=== PATIENT | female | born 1985 | race Caucasian/White ===

== ENCOUNTER 2023-04-23 11:56 | Emergency (ER) | payer OTHER ==
[2023-04-23] MEDS ORDERED: SODIUM CHLORIDE 0.9% 2,000 ML IV STA (11:58)
[2023-04-23 12:07] VITALS: RESP 18; TEMP 99
[2023-04-23 12:54] LABS: Basophils % (A) 1 %; Eosinophils % (A) 1 %; HCT 40.1 % (34.0-46.0); HGB 13.5 gm/dL (11.4-16.0); Lymphocytes % (A) 42 %; MCH 27.7 pg (25.0-35.0); MCHC 33.6 g/dL (31.0-37.0); MCV 82.5 fL (80.0-100.0); Mean Platelet Volume 9.4; Monocytes # (A) 0.2 k/uL (0-1.0); Monocytes % (A) 5 %; Neutrophils # (A) 2.5 k/uL (1.3-7.7); Neutrophils % (A) 50 %; Platelet Count 203 k/uL (150-450); RBC 4.86 m/uL (3.80-5.40); RDW 14.6 % (11.5-15.5); WBC 4.9 k/uL (3.8-10.6)
[2023-04-23 13:12] LABS: Glucose 109 mg/dL (74-99)
[2023-04-23 13:13] LABS: ALT 63 U/L (4-34); AST 94 U/L (14-36); African American GFR (CKD) >90 (>60 ml/min/1.73 sqM); Albumin 4.5 g/dL (3.5-5.0); Alkaline Phosphatase 66 U/L (38-126); Anion Gap 18 mmol/L; Blood Urea Nitrogen 11 mg/dL (7-17); Calcium 9.2 mg/dL (8.4-10.2); Carbon Dioxide 16 mmol/L (22-30); Chloride 110 mmol/L (98-107); Lipase 194 U/L (23-300); Magnesium 2.4 mg/dL (1.6-2.3); Non-African American GFR(CKD) >90 (>60 ml/min/1.73 sqM); Potassium 3.5 mmol/L (3.5-5.1); Sodium 144 mmol/L (137-145); Total Bilirubin 0.3 mg/dL (0.2-1.3); Total Protein 7.5 g/dL (6.3-8.2)
[2023-04-23] MEDS ORDERED: FAMOTIDINE 20 MG/2 ML VIAL IV STA (13:52)
[2023-04-23] MEDS ORDERED: KETOROLAC 15 MG/ML 1 ML VIAL IVP STA (13:52)
[2023-04-23] MEDS ORDERED: METOCLOPRAMIDE 5 MG/ML 2 ML VIAL IVP STA (13:52)
[2023-04-23] MEDS ORDERED: diphenhydrAMINE 50 MG/ML 1 ML VIAL IVP STA (13:52)
--- NOTE | 2023-04-23 13:54 | ED ---
Alcohol HPI - General Chief Complaint: Alcohol Stated Complaint: ETOH Time Seen by Provider: 04/23/23 11:58 Source: patient, EMS, RN notes reviewed Mode of arrival: EMS Limitations: no limitations - History of Present Illness Initial Comments: 37-year-old female presents emergency department via EMS from [facility] for evaluation of intoxication. Patient was checking into [facility] for alcohol rehab she states she drank just prior to going. Patient had a breath alcohol of 0.216. She has a history of IV drug use denies any current use. Patient doesn't nausea and vomiting. States that she has diffuse abdominal discomfort denies having associated symptoms MD Complaint: alcohol withdrawal - Related Data Home Medications Medication Instructions Recorded Confirmed Acetaminophen Tab [Tylenol Tab] 1,000 mg PO Q6HR PRN 04/23/23 04/23/23 Buprenorphine HCl/Naloxone HCl 1 film SL BID 04/23/23 04/23/23 [Suboxone 8 mg-2 mg Sl Film] Gabapentin 600 mg PO TID 04/23/23 04/23/23 Ibuprofen [Motrin] 600 mg PO TID PRN 04/23/23 04/23/23 LORazepam [Ativan] 2 mg PO TID PRN 04/23/23 04/23/23 Propranolol [Inderal] 20 mg PO BID PRN 04/23/23 04/23/23 Thiamine [Vitamin B-1] 100 mg PO DAILY 04/23/23 04/23/23 buPROPion HCL [Wellbutrin XL] 150 mg PO DAILY 04/23/23 04/23/23 hydrOXYzine HCL [Atarax] 25 mg PO TID PRN 04/23/23 04/23/23 Allergies Allergy/AdvReac Type Severity Reaction Status Date / Time No Known Allergies Allergy Verified 04/23/23 14:16 Review of Systems ROS Statement: Those systems with pertinent positive or pertinent negative responses have been documented in the HPI. ROS Other: All systems not noted in ROS Statement are negative. Past Medical History Past Medical History: No Reported History History of Any Multi-Drug Resistant Organisms: None Reported Past Surgical History: No Surgical Hx Reported Past Psychological History: Anxiety Smoking Status: Current every day smoker Past Alcohol Use History: Abuse Past Drug Use History: Marijuana General Exam Limitations: no limitations General appearance: alert, in no apparent distress, appears intoxicated Head exam: Present: atraumatic, normocephalic, normal inspection Eye exam: Present: normal appearance, PERRL, EOMI. Absent: scleral icterus, conjunctival injection, periorbital swelling ENT exam: Present: normal exam, mucous membranes moist Neck exam: Present: normal inspection. Absent: tenderness, meningismus, lymphadenopathy Respiratory exam: Present: normal lung sounds bilaterally. Absent: respiratory distress, wheezes, rales, rhonchi, stridor Cardiovascular Exam: Present: normal rhythm, tachycardia, normal heart sounds. Absent: systolic murmur, diastolic murmur, rubs, gallop, clicks GI/Abdominal exam: Present: soft, normal bowel sounds. Absent: distended, tenderness, guarding, rebound, rigid Neurological exam: Present: alert, oriented X3 Course Vital Signs 04/23/23 04/23/23 12:00 15:58 Temperature 99.0 F Pulse Rate 113 H 85 Respiratory 18 18 Rate Blood Pressure 119/88 93/61 O2 Sat by Pulse 97 100 Oximetry Medical Decision Making - Medical Decision Making Was pt. sent in by a medical professional or institution ([facility], [employer], urgent care, hospital, or long-term...) When possible be specific @ -No Did you speak to anyone other than the patient for history (EMS, parent, family, police, friend...)? What history was obtained from this source @ -No Did you review nursing and triage notes (agree or disagree)? Why? @ -I reviewed and agree with nursing and triage notes Were old charts reviewed (outside hosp., previous admission, EMS record, old EKG, old radiological studies, urgent care reports/EKG's, long-term records)? Report findings @ -No old charts were reviewed Differential Diagnosis (chest pain, altered mental status, abdominal pain women, abdominal pain men, vaginal bleeding, weakness, fever, dyspnea, syncope, headache, dizziness, GI bleed, back pain, seizure, CVA, palpatations, mental health, musculoskeletal)? @ -Alcohol intoxication, alcohol withdrawal, nausea vomiting EKG interpreted by me (3pts min.). @ -None X-rays interpreted by me (1pt min.). @ -None done CT interpreted by me (1pt min.). @ -None done U/S interpreted by me (1pt. min.). @ -None done What testing was considered but not performed or refused? (CT, X-rays, U/S, labs)? Why? @ -None What meds were considered but not given or refused? Why? @ -None Did you discuss the management of the patient with other professionals (professionals i.e. , PA, [employer], lab, RT, psych nurse, licensed clinical social worker, manufacturing industrial engineer, teacher, penal officer, case assembler)? Give summary @ -No Was smoking cessation discussed for >3mins.? @ -No Was critical care preformed (if so, how long)? @ -No Were there social determinants of health that impacted care today? How? (Homelessness, low income, unemployed, alcoholism, drug addiction, transportation, low edu. Level, literacy, decrease access to med. care, fpc, rehab)? @ -No Was there de-escalation of care discussed even if they declined (Discuss DNR or withdrawal of care, Hospice)? DNR status @ -No What co-morbidities impacted this encounter? (DM, HTN, Smoking, COPD, CAD, Cancer, CVA, ARF, Chemo, Hep., AIDS, mental health diagnosis, sleep apnea, morbid obesity)? @ -Alcohol abuse Was patient admitted / discharged? Hospital course, mention meds given and route, prescriptions, significant lab abnormalities, going to OR and other pertinent info. @ -Discharged to [facility] patient was well-hydrated, patient did have mild metabolic acidosis. Patient states she does feel improved after antiemetics. Patient's heart rate has improved patient is currently sober will be discharged back. Undiagnosed new problem with uncertain prognosis? @ -No Drug Therapy requiring intensive monitoring for toxicity (Heparin, Nitro, Insulin, Cardizem)? @ -No Were any procedures done? @ -No Diagnosis/symptom? @ -Alcohol abuse, alcohol intoxication, dehydration Acute, or Chronic, or Acute on Chronic? @ -Acute Uncomplicated (without systemic symptoms) or Complicated (systemic symptoms)? @ -uncomplicated Side effects of treatment? @ -No Exacerbation, Progression, or Severe Exacerbation? @ -No Poses a threat to life or bodily function? How? (Chest pain, [place], [place], pneumonia, PE, COPD, DKA, ARF, appy, cholecystitis, CVA, Diverticulitis, Homicidal, Suicidal, threat to staff... and all critical care pts) @ -No - Lab Data Result diagrams: 04/23/23 12:08 04/23/23 12:08 Lab Results 04/23/23 04/23/23 Range/Units 12:08 12:08 WBC 4.9 (3.8-10.6) k/uL RBC 4.86 (3.80-5.40) m/uL Hgb 13.5 (11.4-16.0) gm/dL Hct 40.1 (34.0-46.0) % MCV 82.5 (80.0-100.0) fL MCH 27.7 (25.0-35.0) pg MCHC 33.6 (31.0-37.0) g/dL RDW 14.6 (11.5-15.5) % Plt Count 203 (150-450) k/uL MPV 9.4 Neutrophils % 50 % Lymphocytes % 42 % Monocytes % 5 % Eosinophils % 1 % Basophils % 1 % Neutrophils # 2.5 (1.3-7.7) k/uL Lymphocytes # 2.0 (1.0-4.8) k/uL Monocytes # 0.2 (0-1.0) k/uL Eosinophils # 0.0 (0-0.7) k/uL Basophils # 0.0 (0-0.2) k/uL Sodium 144 (137-145) mmol/L Potassium 3.5 (3.5-5.1) mmol/L Chloride 110 H (98-107) mmol/L Carbon Dioxide 16 L (22-30) mmol/L Anion Gap 18 mmol/L BUN 11 (7-17) mg/dL Creatinine 0.81 (0.52-1.04) mg/dL Est GFR (CKD-EPI)AfAm >90 (>60 ml/min/1.73 sqM) Est GFR (CKD-EPI)NonAf >90 (>60 ml/min/1.73 sqM) Glucose 109 H (74-99) mg/dL Calcium 9.2 (8.4-10.2) mg/dL Magnesium 2.4 H (1.6-2.3) mg/dL Total Bilirubin 0.3 (0.2-1.3) mg/dL AST 94 H (14-36) U/L ALT 63 H (4-34) U/L Alkaline Phosphatase 66 (38-126) U/L Total Protein 7.5 (6.3-8.2) g/dL Albumin 4.5 (3.5-5.0) g/dL Lipase 194 (23-300) U/L Disposition Clinical Impression: Alcoholic intoxication, Alcohol abuse Disposition: HOME SELF-CARE Condition: Stable Instructions (If sedation given, give patient instructions): Alcohol Intoxication (ED) Additional Instructions: Please return to the Emergency Department if symptoms worsen or any other concerns. Is patient prescribed a controlled substance at d/c from ED?: No Referrals: None,Stated [Primary Care Provider] - 1-2 days Time of Disposition: 16:04
[2023-04-23 17:37] VITALS: BP 106/69; PULSE 88
== END 2023-04-23 17:43 | disposition home or self-care (01) ==
LOC: EC 11:56
DX: F10.129 Alcohol abuse with intoxication, unspecified (principal); F12.90 Cannabis use, unspecified, uncomplicated; F17.200 Nicotine dependence, unspecified, uncomplicated; F41.9 Anxiety disorder, unspecified; Z79.899 Other long term (current) drug therapy
CPT/HCPCS: 99284 ×2; 96374 ×2; 96375 ×4; 96361 ×3; 36415; 93005; 80053; 83690; 83735; 85025; J1200; J2765; J3490; J1885

== ENCOUNTER 2023-04-30 21:43 | Observation (INO) | payer OTHER ==
--- NOTE | 2023-05-01 00:51 | ED ---
Seizure HPI - General Chief Complaint: Seizure Stated Complaint: Seizure Time Seen by Provider: 05/01/23 00:33 Source: patient, RN notes reviewed, old records reviewed Mode of arrival: EMS Limitations: no limitations - History of Present Illness Initial Comments: This is a 37-year-old female to the emergency department today. Patient presents today for evaluation regards to seizure. Patient has seizure prior to arrival in the emergency room. This patient second seizure, she takes Wellbutrin to help with smoking, patient also recently going through alcohol withdrawal. Patient is alcohol withdrawal seizure and has not been feeling well MD Complaint: seizure -: minutes(s) Description of Episode: loss of consciousness, tonic-clonic movement -: second(s) Witnessed: yes - by bystander Trauma: Yes Seizure History: none Possible Precipitating Event: none Associated Symptoms: denies other symptoms Treatments Prior to Arrival: none - Related Data Home Medications Medication Instructions Recorded Confirmed Buprenorphine HCl/Naloxone HCl 1 film SL BID 04/23/23 05/01/23 [Suboxone 8 mg-2 mg Sl Film] Acetaminophen Tab [Tylenol] 650 mg PO Q4H PRN 05/01/23 05/01/23 Benzocaine 20 % Gel [Orajel] 1 applic TOPICAL DIRECTED PRN 05/01/23 05/01/23 Chlorpheniramine Maleate 4 mg PO Q4H PRN 05/01/23 05/01/23 [Chlor-Trimeton] Ibuprofen [Motrin Ib] 600 mg PO Q6HR PRN 05/01/23 05/01/23 Mirtazapine [Remeron] 15 mg PO HS 05/01/23 05/01/23 busPIRone HCl [Buspar] 10 mg PO TID 05/01/23 05/01/23 cloNIDine HCL [Catapres] 0.1 - 0.3 mg PO Q4H PRN 05/01/23 05/01/23 lidocaine HCL [lidocaine HCL 1 dose MUCOUS MEM DIRECTED PRN 05/01/23 05/01/23 Viscous] Previous Rx's Medication Instructions Recorded Folic Acid 1 mg PO DAILY #30 tab 05/02/23 Multivitamins, Thera [Multivitamin 1 each PO DAILY #30 tab 05/02/23 (formulary)] Thiamine [Vitamin B-1] 100 mg PO DAILY #30 tab 05/02/23 Allergies Allergy/AdvReac Type Severity Reaction Status Date / Time No Known Allergies Allergy Verified 05/01/23 08:15 Review of Systems ROS Statement: Those systems with pertinent positive or pertinent negative responses have been documented in the HPI. ROS Other: All systems not noted in ROS Statement are negative. Past Medical History Past Medical History: No Reported History History of Any Multi-Drug Resistant Organisms: None Reported Past Surgical History: No Surgical Hx Reported Past Psychological History: Anxiety Smoking Status: Current every day smoker Past Alcohol Use History: Abuse Past Drug Use History: Marijuana General Exam General appearance: alert, in no apparent distress Head exam: Present: atraumatic, normocephalic, normal inspection Eye exam: Present: normal appearance, PERRL, EOMI. Absent: scleral icterus, conjunctival injection, periorbital swelling ENT exam: Present: normal exam, mucous membranes moist Neck exam: Present: normal inspection. Absent: tenderness, meningismus, lymphadenopathy Respiratory exam: Present: normal lung sounds bilaterally. Absent: respiratory distress, wheezes, rales, rhonchi, stridor Cardiovascular Exam: Present: regular rate, normal rhythm, normal heart sounds. Absent: systolic murmur, diastolic murmur, rubs, gallop, clicks GI/Abdominal exam: Present: soft, normal bowel sounds. Absent: distended, tenderness, guarding, rebound, rigid Extremities exam: Present: normal inspection, full ROM, normal capillary refill. Absent: tenderness, pedal edema, joint swelling, calf tenderness Back exam: Present: normal inspection Neurological exam: Present: alert, oriented X3, CN II-XII intact Psychiatric exam: Present: normal affect, normal mood Skin exam: Present: warm, dry, intact, normal color. Absent: rash Course Vital Signs 04/30/23 05/01/23 05/01/23 21:47 06:03 06:18 Temperature 98.8 F Pulse Rate 100 70 59 L Respiratory 18 18 18 Rate Blood Pressure 143/97 107/69 O2 Sat by Pulse 99 100 100 Oximetry 05/01/23 05/01/23 05/01/23 07:00 07:31 08:00 Temperature Pulse Rate 76 64 76 Respiratory 16 18 16 Rate Blood Pressure 107/69 115/74 115/74 O2 Sat by Pulse 97 99 100 Oximetry 05/01/23 05/01/23 05/01/23 09:00 10:00 11:00 Temperature Pulse Rate 72 70 76 Respiratory 18 16 18 Rate Blood Pressure 121/90 119/74 122/92 O2 Sat by Pulse 98 97 96 Oximetry 05/01/23 05/01/23 05/01/23 12:00 13:00 14:00 Temperature Pulse Rate 70 74 72 Respiratory 18 18 18 Rate Blood Pressure 107/62 106/59 121/71 O2 Sat by Pulse 97 97 98 Oximetry 05/01/23 05/01/23 05/01/23 16:34 18:46 20:00 Temperature 98.0 F Pulse Rate 79 76 80 Respiratory 18 18 18 Rate Blood Pressure 129/76 96/68 123/73 O2 Sat by Pulse 98 98 98 Oximetry 05/01/23 05/01/23 21:00 22:00 Temperature Pulse Rate 78 74 Respiratory 18 16 Rate Blood Pressure 102/47 122/79 O2 Sat by Pulse 95 97 Oximetry - Reevaluation(s) Reevaluation #1: 05/01/23 01:46 Record is reviewed Reevaluation #2: 05/01/23 01:46 Recurrent seizure activity here in the ER Reevaluation #3: 05/01/23 01:47 Patient informed results and questions answered Reevaluation #4: 05/01/23 01:46 Was pt. sent in by a medical professional or institution (, [place], [facility], urgent care, hospital, or snf...) When possible be specific @ -no Did you speak to anyone other than the patient for history (EMS, parent, family, police, friend...)? What history was obtained from this source @ -no Did you review nursing and triage notes (agree or disagree)? Why? @ -agree Are old charts reviewed (outside hosp., previous admission, EMS record, old EKG, old radiological studies, urgent care reports/EKG's, snf records)? Report findings @ -yes Differential Diagnosis (chest pain, altered mental status, abdominal pain women, abdominal pain men, vaginal bleeding, weakness, fever, dyspnea, syncope, headache, dizziness, GI bleed, back pain, seizure, CVA, palpatations, mental health, musculoskeletal)? @ -prior EKG interpreted by me (3pts min.). @ -yes X-rays interpreted by me (1pt min.). @ -no CT interpreted by me (1pt min.). @ -no U/S interpreted by me (1pt. min.). @ -no What testing was considered but not performed or refused? (CT, X-rays, U/S, lab s)? Why? @ -none What meds were considered but not given or refused? Why? @ -none Did you discuss the management of the patient with other professionals (professionals i.e. DrMagdaleno, [place], [facility], lab, RT, psych nurse, social professionals, paper twister, teacher, global chief experience officer, case management manager)? Give summary @ -no Was smoking cessation discussed for >3mins.? @ -no Was critical care preformed (if so, how long)? @ -no Were there social determinants of health that impacted care today? How? (Homelessness, low income, unemployed, alcoholism, drug addiction, transportation, low edu. Level, literacy, decrease access to med. care, assisted, rehab)? @ -none Was there de-escalation of care discussed even if they declined (Discuss DNR or withdrawal of care, Hospice)? DNR status @ -no What co-morbidities impacted this encounter? (DM, HTN, Smoking, COPD, CAD, Cancer, CVA, ARF, Chemo, Hep., AIDS, mental health diagnosis, sleep apnea, morbid obesity)? @ -none Was patient admitted / discharged? Hospital course, mention meds given and route, prescriptions, significant lab abnormalities, going to OR and other pertinent info. @ - 37 female to the emergency department for evaluation of seizure seizure activity. Patient is having no recurrent seizure here in the ER, suffer from alcohol withdrawal drug abuse. Patient will be admitted for evaluation treatment, no travel history or sick contacts Admitted Undiagnosed new problem with uncertain prognosis? @ -no Drug Therapy requiring intensive monitoring for toxicity (Heparin, Nitro, Insulin, Cardizem)? @ -no Were any procedures done? @ -no Diagnosis/symptom? @ -Acute seizure, withdrawal symptoms Acute, or Chronic, or Acute on Chronic? @ -Acute Uncomplicated (without systemic symptoms) or Complicated (systemic symptoms)? @ -Complicated Side effects of treatment? @ -no Exacerbation, Progression, or Severe Exacerbation? @ -exacerbation Poses a threat to life or bodily function? How? (Chest pain, [place], [place], pneumonia, PE, COPD, DKA, ARF, appy, cholecystitis, CVA, Diverticulitis, Homicidal, Suicidal, threat to staff... and all critical care pts) @ -yes status epilepticus Reevaluation #5: 05/01/23 01:46 Differential Seizure: Recurrent seizure disorder, febrile seizure, alcohol withdrawal, stimulants, meningitis, encephalitis, intercranial hemorrhage, intracranial tumor, stroke, eclampsia, thyrotoxicosis, hypocalcemia, hyponatremia, hypernatremia, hypomagnesemia, psychogenic, this is not meant to be an all-inclusive list. Medical Decision Making - Medical Decision Making 37 female to the emergency department for evaluation of seizure seizure activity. Patient is having no recurrent seizure here in the ER, suffer from alcohol withdrawal drug abuse. Patient will be admitted for evaluation treatment, no travel history or sick contacts - Lab Data Result diagrams: 05/02/23 05:18 05/02/23 05:18 Lab Results 05/01/23 05/01/23 05/01/23 Range/Units 01:09 01:09 01:09 WBC 5.0 (3.8-10.6) k/uL RBC 4.10 (3.80-5.40) m/uL Hgb 11.7 (11.4-16.0) gm/dL Hct 34.6 (34.0-46.0) % MCV 84.5 (80.0-100.0) fL MCH 28.6 (25.0-35.0) pg MCHC 33.9 (31.0-37.0) g/dL RDW 15.1 (11.5-15.5) % Plt Count 146 L (150-450) k/uL MPV 9.7 Neutrophils % 50 % Lymphocytes % 37 % Monocytes % 6 % Eosinophils % 3 % Basophils % 1 % Neutrophils # 2.5 (1.3-7.7) k/uL Lymphocytes # 1.8 (1.0-4.8) k/uL Monocytes # 0.3 (0-1.0) k/uL Eosinophils # 0.1 (0-0.7) k/uL Basophils # 0.0 (0-0.2) k/uL Sodium 139 (137-145) mmol/L Potassium 4.0 (3.5-5.1) mmol/L Chloride 103 (98-107) mmol/L Carbon Dioxide 25 (22-30) mmol/L Anion Gap 11 mmol/L BUN 13 (7-17) mg/dL Creatinine 0.90 (0.52-1.04) mg/dL Est GFR (CKD-EPI)AfAm >90 (>60 ml/min/1.73 sqM) Est GFR (CKD-EPI)NonAf 83 (>60 ml/min/1.73 sqM) Glucose 91 (74-99) mg/dL Calcium 9.5 (8.4-10.2) mg/dL Magnesium 2.3 (1.6-2.3) mg/dL Total Bilirubin 0.4 (0.2-1.3) mg/dL AST 31 (14-36) U/L ALT 33 (4-34) U/L Alkaline Phosphatase 45 (38-126) U/L Total Protein 7.4 (6.3-8.2) g/dL Albumin 4.7 (3.5-5.0) g/dL Lipase 108 (23-300) U/L Urine Color Yellow Urine Appearance Clear (Clear) Urine pH 5.0 (5.0-8.0) Ur Specific [place] 1.020 (1.001-1.035) Urine Protein Negative (Negative) Urine Glucose (UA) Negative (Negative) Urine Ketones Negative (Negative) Urine Blood Negative (Negative) Urine Nitrite Negative (Negative) Urine Bilirubin Negative (Negative) Urine Urobilinogen <2.0 (<2.0) mg/dL Ur Leukocyte Esterase Negative (Negative) Salicylates <1.0 mg/dL Urine Opiates Screen Not Detected (NotDetected) Ur Oxycodone Screen Not Detected (NotDetected) Urine Methadone Screen Not Detected (NotDetected) Ur Propoxyphene Screen Not Detected (NotDetected) Acetaminophen <10.0 ug/mL Ur Barbiturates Screen Detected H (NotDetected) U Tricyclic Antidepress Not Detected (NotDetected) Ur Phencyclidine Scrn Not Detected (NotDetected) Ur Amphetamines Screen Not Detected (NotDetected) U Methamphetamines Scrn Not Detected (NotDetected) U Benzodiazepines Scrn Detected H (NotDetected) Urine Cocaine Screen Not Detected (NotDetected) U Marijuana (THC) Screen Not Detected (NotDetected) Serum Alcohol <10 mg/dL - EKG Data -: EKG Interpreted by Me (EKG is sinus rhythm 74 VA 130 QRS 78 QTc 408) Disposition Clinical Impression: Alcohol abuse, New onset seizure, Generalized seizure, Alcohol withdrawal Disposition: HOME SELF-CARE Condition: Stable Is patient prescribed a controlled substance at d/c from ED?: No Time of Disposition: 01:25
[2023-05-01] MEDS ORDERED: LORazepam 2 MG/ML INJ IV STA (00:52)
[2023-05-01] MEDS ORDERED: SODIUM CHLORIDE 0.9% 500 ML 500 ML IV STA (00:52)
[2023-05-01] MEDS ORDERED: SODIUM CHLORIDE 0.9% 1,000 ML IV STA ×2 (00:52)
[2023-05-01] MEDS ORDERED: LORazepam 2 MG/ML INJ IV PRN ×2 (00:52)
[2023-05-01] MEDS ORDERED: NALOXONE 0.4 MG/ML 1 ML VIAL IV PRN (01:26)
[2023-05-01] MEDS ORDERED: ONDANSETRON 4 MG/2 ML VIAL IVP PRN (01:26)
[2023-05-01 02:30] LABS: Basophils % (A) 1 %; Eosinophils # (A) 0.1 k/uL (0-0.7); Eosinophils % (A) 3 %; HCT 34.6 % (34.0-46.0); HGB 11.7 gm/dL (11.4-16.0); Lymphocytes # (A) 1.8 k/uL (1.0-4.8); Lymphocytes % (A) 37 %; MCH 28.6 pg (25.0-35.0); MCHC 33.9 g/dL (31.0-37.0); MCV 84.5 fL (80.0-100.0); Mean Platelet Volume 9.7; Monocytes # (A) 0.3 k/uL (0-1.0); Monocytes % (A) 6 %; Neutrophils # (A) 2.5 k/uL (1.3-7.7); Neutrophils % (A) 50 %; Platelet Count 146 k/uL (150-450); RDW 15.1 % (11.5-15.5)
[2023-05-01] MEDS: SODIUM CHLORIDE 0.9% 1,000 ML IV SCH ×4 (02:37→16:40)
[2023-05-01 02:42] LABS: Appearance,Urine Clear (Clear); Bilirubin,Urine Negative (Negative); Blood,Urine Negative (Negative); Color,Urine Yellow; Glucose,Urine (UA) Negative (Negative); Ketones,Urine Negative (Negative); Leukocyte Esterase,Urine Negative (Negative); Nitrite,Urine Negative (Negative); Protein,Urine Negative (Negative); Urobilinogen,Urine <2.0 mg/dL (<2.0)
[2023-05-01 02:45] LABS: Amphetamine Screen,Urine Not Detected (NotDetected); Barbiturate Screen,Urine Detected (NotDetected); Benzodiazepines Screen,Urine Detected (NotDetected); Cocaine Screen,Urine Not Detected (NotDetected); Methadone Screen, Urine Not Detected (NotDetected); Opiate Screen,Urine Not Detected (NotDetected); Oxycodone Screen, Urine Not Detected (NotDetected); Phencyclidine Screen,Urine Not Detected (NotDetected); Tricyclic Antidepressant,Urine Not Detected (NotDetected); Urn Cannabinoid Scrn Not Detected (NotDetected)
[2023-05-01] MEDS ORDERED: ALPRAZolam 0.5 MG TAB PO STA (02:56)
[2023-05-01 02:57] LABS: ALT 33 U/L (4-34); AST 31 U/L (14-36); Acetaminophen <10.0 ug/mL; African American GFR (CKD) >90 (>60 ml/min/1.73 sqM); Albumin 4.7 g/dL (3.5-5.0); Alcohol <10 mg/dL; Alkaline Phosphatase 45 U/L (38-126); Anion Gap 11 mmol/L; Blood Urea Nitrogen 13 mg/dL (7-17); Calcium 9.5 mg/dL (8.4-10.2); Carbon Dioxide 25 mmol/L (22-30); Chloride 103 mmol/L (98-107); Glucose 91 mg/dL (74-99); Lipase 108 U/L (23-300); Magnesium 2.3 mg/dL (1.6-2.3); Non-African American GFR(CKD) 83 (>60 ml/min/1.73 sqM); Salicylate <1.0 mg/dL; Sodium 139 mmol/L (137-145); Total Bilirubin 0.4 mg/dL (0.2-1.3); Total Protein 7.4 g/dL (6.3-8.2)
--- NOTE | 2023-05-01 04:28 | P.HPIM ---
History of Present Illness H&P Date: 05/01/23 Patient is a 37-year-old female with a PMH of alcohol abuse who was sent in from [facility] after a witnessed grand mal seizure. Patient notes that she has been drinking a fifth of hard liquor daily for the past several months and he decided to get clean and checked into [facility] one week ago. Reports having a grand mal seizure witnessed by her mother just prior to going into [facility] while intoxicated. Reports biting her tongue during that episode and it lasted for roughly 30 seconds as reported by her mother. States that she had been doing well at [facility] over the last 7 days and that her Ativan was slowly tapered down and discontinued 2 days ago. States her blood pressure had been somewhat more elevated and she was feeling more anxious throughout the day today and had walked out of the group meeting into the kitchen and the next thing she knew she was on the ground with people standing over her. She had roughly a 90 second episode of what was described as a grand mal seizure. Reports feeling at her baseline at the time of interview. Denies any prior episodes of seizure. Denies experiencing speech impairment, visual disturbances, focal weakness, numbness, or tingling. Also denied chest discomfort, shortness of breath, fever, chills, cough, nausea, vomiting, abdominal pain, diarrhea. In the emergency room, EKG reveals sinus rhythm at [address]/T-wave changes as reviewed by me. Laboratory evaluation was remarkable for platelet count of 146. ED documentation reviewed and case discussed with ED provider. Review of systems: Pertinent positives and negatives as discussed in HPI, a complete review of systems was performed and all other systems are negative. Physical examination: Vital signs reviewed General: non toxic, no distress, appears at stated age, normal weight Derm: no unusual rashes/lesions, warm Head: atraumatic, normocephalic, symmetric Eyes: EOMI, no lid lag, anicteric sclera, pupils equal round reactive to light ENT: Nose and ears atraumatic Neck: No cervical lymphadenopathy, trachea midline, supple Mouth: no lip lesion, mucus membranes moist Cardiovascular: S1S2 reg, no murmur, positive dorsalis pedis pulse bilateral, no edema Lungs: CTA bilateral, no rhonchi, no rales, no accessory muscle use Abdominal: soft, nontender to palpation, no guarding Ext: muscle strength 5 out of 5 in all 4 extremities grossly, no gross muscle atrophy, no contractures, Neuro: CN II-XI grossly intact, no gross focal neuro deficits Psych: Alert, oriented, appropriate affect Assessment: Seizure, suspect secondary to alcohol withdrawal in setting of Wellbutrin use Imaging: In the emergency room, EKG reveals sinus rhythm at [address]/T-wave changes as reviewed by me. Data Review: Laboratory evaluation was remarkable for platelet count of 146. Plan: CIWA protocol C/w Ativan IV push when necessary Continue with IV fluids with normal saline 130 mL/h Continue thiamine and folic acid Seizure precautions Neurology consult Hold off on antiepileptics at this time DVT prophylaxis: Lovenox Subq The patient is admitted with an anticipated less than 2 midnight stay for evaluation of seizure CODE STATUS: Full Code Discussed with: Patient Anticipated discharge place: Home Past Medical History Past Medical History: No Reported History History of Any Multi-Drug Resistant Organisms: None Reported Past Surgical History: No Surgical Hx Reported Past Psychological History: Anxiety Smoking Status: Current every day smoker Past Alcohol Use History: Abuse Past Drug Use History: Marijuana Medications and Allergies Home Medications Medication Instructions Recorded Confirmed Type Acetaminophen Tab [Tylenol Tab] 1,000 mg PO Q6HR PRN 04/23/23 04/23/23 History Buprenorphine HCl/Naloxone HCl 1 film SL BID 04/23/23 04/23/23 History [Suboxone 8 mg-2 mg Sl Film] Gabapentin 600 mg PO TID 04/23/23 04/23/23 History Ibuprofen [Motrin] 600 mg PO TID PRN 04/23/23 04/23/23 History LORazepam [Ativan] 2 mg PO TID PRN 04/23/23 04/23/23 History Propranolol [Inderal] 20 mg PO BID PRN 04/23/23 04/23/23 History Thiamine [Vitamin B-1] 100 mg PO DAILY 04/23/23 04/23/23 History buPROPion HCL [Wellbutrin XL] 150 mg PO DAILY 04/23/23 04/23/23 History hydrOXYzine HCL [Atarax] 25 mg PO TID PRN 04/23/23 04/23/23 History Allergies Allergy/AdvReac Type Severity Reaction Status Date / Time No Known Allergies Allergy Verified 04/30/23 21:51 Physical Exam Vitals: Vital Signs Temp Pulse Resp BP Pulse Ox 04/30/23 21:47 98.8 F 100 18 143/97 99 Intake and Output 04/30/23 04/30/23 05/01/23 14:59 22:59 06:59 Other: Weight 77.111 kg Results CBC & Chem 7: 05/01/23 01:09 05/01/23 01:09 Labs: Abnormal Lab Results - Last 24 Hours (Table) 05/01/23 05/01/23 Range/Units 01:09 01:09 Plt Count 146 L (150-450) k/uL Ur Barbiturates Screen Detected H (NotDetected) U Benzodiazepines Scrn Detected H (NotDetected)
[2023-05-01] MEDS: FOLIC ACID 1 MG TAB PO SCH (08:34)
[2023-05-01] MEDS: MULTIVITAMINS, THERA 1 EACH TAB PO SCH (08:35)
[2023-05-01] MEDS: ENOXAPARIN 40 MG/0.4 ML SYRINGE SQ SCH (08:35)
[2023-05-01] MEDS: LORazepam 2 MG/ML INJ IV PRN ×3 (08:38→19:50)
[2023-05-01] MEDS: busPIRone HCl 10 MG TAB PO SCH ×3 (09:59→21:24)
[2023-05-01] MEDS ORDERED: NON FORMULARY DRUG (Buprenorphine Hcl/Naloxone Hcl [Suboxone 8 Mg-2 Mg Sl Film] 1 EACH Fil SUBLINGUAL SCH (10:00)
--- NOTE | 2023-05-01 12:04 | P.CNNES ---
History of Present Illness Consult date: 05/01/23 Requesting physician: Tres Olivo Reason for Consult: seizure History of Present Illness: This is a 37-year-old woman who presents because of the seizure. Patient states she has significant alcohol use and that is in the rehab and yesterday while at rehab that she had a seizure-like activity that was witnessed. She does not recall what transpired. She denies any tongue bite or urinary incontinence. Denies bowel incontinence. She was told that she was having shaking of extremities. And the episode lasted for a minute and a half. She stated that recently she was stopped off of the Ativan. She also the last 1-2 month she's been on Wellbutrin. She stated a month ago she decreased consumption of alcohol for few days that she thinks and she had a seizure-like activity over her parents place and at that time she had the tongue bite. She drinks heavy alcohol but again she is in rehab. Been in rehab for close to 8 days. As well as a child she had the febrile seizure one time episode. She denies any focal deficits, numbness, visual disturbance. Otherwise she was term, without any complication. He has history of opiate use which she stopped years ago and she is on Suboxone. 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 Her child is and is a 25 [address] and is doing better. She's can the bottlefeed. Denies any family history of seizures. Some of the workup during his hospital visit consisted of: Chemistry panel is unremarkable. Serum glucose is 91. UDS is positive for benzo as well as barbiturates. Otherwise rest is not detected. Serum alcohol was less than 10 acetaminophen is less than 10 and salicylate is less than 1.0 Review of Systems The positive and negative as per HPI. Past Medical History Past Medical History: No Reported History History of Any Multi-Drug Resistant Organisms: None Reported Past Surgical History: No Surgical Hx Reported Past Psychological History: Anxiety Smoking Status: Current every day smoker Past Alcohol Use History: Abuse Past Drug Use History: Marijuana Medications and Allergies Home Medications Medication Instructions Recorded Confirmed Type Buprenorphine HCl/Naloxone HCl 1 film SL BID 04/23/23 05/01/23 History [Suboxone 8 mg-2 mg Sl Film] buPROPion HCL [Wellbutrin XL] 150 mg PO BID 04/23/23 05/01/23 History Acetaminophen Tab [Tylenol] 650 mg PO Q4H PRN 05/01/23 05/01/23 History Benzocaine 20 % Gel [Orajel] 1 applic TOPICAL DIRECTED PRN 05/01/23 05/01/23 History Chlorpheniramine Maleate 4 mg PO Q4H PRN 05/01/23 05/01/23 History [Chlor-Trimeton] Ibuprofen [Motrin Ib] 600 mg PO Q6HR PRN 05/01/23 05/01/23 History Mirtazapine [Remeron] 15 mg PO HS 05/01/23 05/01/23 History busPIRone HCl [Buspar] 10 mg PO TID 05/01/23 05/01/23 History clindamycin HCL 300 mg PO TID@0630,1230,1630 05/01/23 05/01/23 History cloNIDine HCL [Catapres] 0.1 - 0.3 mg PO Q4H PRN 05/01/23 05/01/23 History lidocaine HCL [lidocaine HCL 1 dose MUCOUS MEM DIRECTED PRN 05/01/23 05/01/23 History Viscous] Allergies Allergy/AdvReac Type Severity Reaction Status Date / Time No Known Allergies Allergy Verified 05/01/23 08:15 Physical Examination - Vital Signs Vital Signs: Vital Signs Temp Pulse Resp BP Pulse Ox 05/01/23 10:00 70 16 119/74 97 05/01/23 09:00 72 18 121/90 98 05/01/23 08:00 76 16 115/74 100 05/01/23 07:31 64 18 115/74 99 05/01/23 07:00 76 16 107/69 97 05/01/23 06:18 59 L 18 107/69 100 05/01/23 06:03 70 18 100 04/30/23 21:47 98.8 F 100 18 143/97 99 Intake and Output 04/30/23 05/01/23 05/01/23 22:59 06:59 14:59 Other: Weight 77.111 kg GENERAL: The patient is lying in bed and is not in acute distress. NEUROLOGICAL: Higher mental function: The patient is awake, alert, oriented to self, place and time. Patient is following commands. No aphasia and no neglect. Cranial nerves: The pupils are round, equal and reactive to light and accommodat ion. Visual mansfield are full to confrontation throughout. Extraocular movement is intact no nystagmus is noted. Facial sensation is normal to touch throughout. The facial strength is normal throughout. Hearing is normal bilaterally to hand rub. Tongue is midline and moved [id number] without any difficulty. No dysarthria is noted. Shoulder shrug is normal bilaterally. Motor: The strength is 5 over 5 throughout. Normal tone and bulk. Cerebellum: Normal finger to nose heel to martini bilaterally. Sensation: Sensation is normal to touch throughout. Reflexes (right/left): 2+ throughout. Plantars are downgoing bilaterally. Results - Laboratory Findings CBC and BMP: 05/01/23 01:09 05/01/23 01:09 Abnormal Lab Findings: Abnormal Labs 05/01/23 05/01/23 01:09 01:09 Plt Count 146 L Ur Barbiturates Screen Detected H U Benzodiazepines Scrn Detected H Assessment and Plan Assessment: This is a 37-year-old woman who presents from rehab facility because of a witnessed seizure-like activity lasting for 90 seconds. She states she has significant alcohol use and has been in rehab for 8 days and is seems that lately she was discontinued on her Ativan. Also she was placed on Wellbutrin in the last month to month. She had the prior seizure-like activity a month ago and that she was a cutting down on alcohol. Seizure likely provoked due to cessation of Ativan as well as Wellbutrin decreases the threshold for seizures. Prior history of seizure like activity about a month ago and the likely alcohol withdrawal since the patient was cutting down all call that she recalls Significant alcohol use and is in rehab History of opiate use and has been sober for 2 years Plan: I ordered a routine EEG as well as MRI the brain with and without I'll not start the patient on antiepileptic drugs since likely her seizures are provoked. If patient continues to have seizures then recommend placing the patient on Keppra 500 mg 1 tablet twice a day. Seizure precautions seizure pads She e is on timing 100 mg daily as well as on the folic acid 1 mg daily. Please avoid Wellbutrin since it can lower the seizure threshold. Patient was counseled on alcohol cessation and the continue avoiding opiates Per [facility] because of seizure, avoid driving for 6 month until seizure- free, avoid heights, avoids swimming unassisted or using heavy machinery. Recommend the patient to follow-up with a neurologist as an outpatient within 1- 2 weeks. We'll defer the rest of the medical management to the primary team Plan discussed with the patient. Thank you for the consultation. Time with Patient: Greater than 30
[2023-05-01] MEDS: BUPRENORPHINE-NALOX 8-2 MG TAB 1 EACH TAB.SUBL SL SCH ×2 (15:31→21:24)
--- NOTE | 2023-05-01 16:11 | EEG ---
ELECTROENCEPHALOGRAM REPORT CLINICAL HISTORY: This is a 37-year-old woman with history of alcohol use, who stopped drinking alcohol recently and was stopped off Ativan as well recently and had seizure-like activity. The video EEG is obtained to evaluate for seizure and epileptiform activity. RELEVANT MEDICATIONS: 1. Ativan. 2. Wellbutrin. EEG TYPE: A routine 21-channel EEG with video using the 10/20 electrode placement system. DESCRIPTION: Wakefulness and drowsiness are obtained. During awake state, the posterior-dominant rhythm consists of [id number] voltage of 10 Hz activity, that is well modulated and well sustained. There is no physiological stage II sleep architecture. There is no focal slowing. There is diffuse excessive beta activity throughout. INTERICTAL AND ICTAL: None. ACTIVATION PROCEDURE: Photic stimulation did not evoke a posterior driving response. There is no abnormality during the photic stimulation. Hyperventilation is not performed. CLINICAL INTERPRETATION: This is an abnormal routine EEG. The excessive beta activity is likely due to medication effect (Ativan). Otherwise, the background is normal, and there is no focal slowing, epileptiform discharge, or seizure on the EEG. If there is still concern for seizure, recommend a repeat EEG, a sleep-deprived or a prolonged EEG, and that can be considered as an outpatient. Clinical correlation is recommended. MMODL / IJN: [id number] /
[2023-05-01] MEDS ORDERED: MIRTAZAPINE 15 MG TAB PO SCH (21:00)
[2023-05-01 23:33] VITALS: RESP 16
[2023-05-02] MEDS ORDERED: ALPRAZolam 0.25 MG TAB PO STA (01:10)
[2023-05-02] MEDS: SODIUM CHLORIDE 0.9% 1,000 ML IV SCH ×2 (05:19→14:32)
[2023-05-02 08:38] LABS: Basophils # (A) 0.04 X 10*3/uL (0.00-0.10); Basophils % (A) 0.8 %; Eosinophils # (A) 0.18 X 10*3/uL (0.04-0.35); Eosinophils % (A) 3.6 %; HCT 32.9 % (37.2-46.3); HGB 10.5 g/dL (12.0-15.0); Immature Grans, Automated 0 %; Lymphocytes # (A) 2.77 X 10*3/uL (0.90-5.00); Lymphocytes % (A) 56.1 %; MCH 27.6 pg (27.0-32.0); MCHC 31.9 g/dL (32.0-37.0); MCV 86.6 FL (80.0-97.0); Monocytes % (A) 10.1 %; NRBC Per 100 WBC 0 X 10*3/uL (0.00-0.01); Neutrophils # (A) 1.45 X 10*3/uL (1.80-7.70); Neutrophils % (A) 29.4 %; Platelet Count 142 X 10*3/uL (140-440); RDW 14.1 % (11.5-14.5); WBC 4.94 X 10*3/uL (4.50-10.00)
[2023-05-02] MEDS: MULTIVITAMINS, THERA 1 EACH TAB PO SCH (08:45)
[2023-05-02] MEDS: busPIRone HCl 10 MG TAB PO SCH (08:46)
[2023-05-02] MEDS: FOLIC ACID 1 MG TAB PO SCH (08:46)
[2023-05-02] MEDS: ENOXAPARIN 40 MG/0.4 ML SYRINGE SQ SCH (08:46)
[2023-05-02] MEDS: BUPRENORPHINE-NALOX 8-2 MG TAB 1 EACH TAB.SUBL SL SCH (08:46)
[2023-05-02] MEDS: LORazepam 2 MG/ML INJ IV PRN (08:56)
[2023-05-02] MEDS ORDERED: THIAMINE 100 MG TAB PO SCH (09:00)
[2023-05-02 09:11] LABS: ALT 26 U/L (8-44); AST 17 U/L (13-35); Albumin 3.8 g/dL (3.8-4.9); Alkaline Phosphatase 39 U/L (41-126); Blood Urea Nitrogen 14.2 mg/dL (9.0-27.0); Calcium 9.3 mg/dL (8.7-10.3); Carbon Dioxide 25.7 mmol/L (21.6-31.8); Chloride 105 mmol/L (96-109); Glucose 85 mg/dL (70-110); Magnesium 2.3 mg/dL (1.5-2.4); Phosphorus 4.6 mg/dL (2.4-5.1); Potassium 4.6 mmol/L (3.5-5.5); Sodium 140 mmol/L (135-145); Total Bilirubin <0.2 mg/dL (0.3-1.2); Total Protein 5.8 g/dL (6.2-8.2)
[2023-05-02] MEDS ORDERED: ALPRAZolam 1 MG TAB PO ONE (11:45)
--- NOTE | 2023-05-02 11:49 | P.PN ---
Subjective Progress Note Date: 05/02/23 I am follow-up with the patient and no further seizure. She's feeling much better. Objective - Vital Signs Vital signs: Vital Signs Temp 98.6 F 05/02/23 07:49 Pulse 60 05/02/23 07:49 Resp 16 05/02/23 07:49 BP 116/77 05/02/23 07:49 Pulse Ox 98 05/02/23 07:49 FiO2 Intake & Output 05/01/23 05/02/23 05/02/23 18:59 06:59 18:59 Intake Total 840 Balance 840 Weight 77.111 kg Intake: Intake, IV Titration 600 Amount Sodium Chloride 0.9% 1, 600 000 ml @ 130 mls/hr IV . Q7H42M IRIS Rx#:[id number] Oral 240 Other: # Voids 1 - Exam GENERAL: The patient is lying in bed and is not in acute distress. NEUROLOGICAL: Higher mental function: The patient is awake, alert, oriented to self, place and time. Patient is following commands. No aphasia and no neglect. Cranial nerves: The pupils are round, equal and reactive to light and accommodation. Visual mansfield are full to confrontation throughout. Extraocular movement is intact no nystagmus is noted. Facial sensation is normal to touch throughout. The facial strength is normal throughout. Hearing is normal bilaterally to hand rub. Tongue is midline and moved [id number] without any difficulty. No dysarthria is noted. Shoulder shrug is normal bilaterally. Motor: The strength is 5 over 5 throughout. Normal tone and bulk. Cerebellum: Normal finger to nose heel to martini bilaterally. Sensation: Sensation is normal to touch throughout. Reflexes (right/left): 2+ throughout. Plantars are downgoing bilaterally. Some of the workup during his hospital visit consisted of: Chemistry panel is unremarkable. Serum glucose is 91. UDS is positive for benzo as well as barbiturates. Otherwise rest is not detected. Serum alcohol was less than 10 acetaminophen is less than 10 and salicylate is less than 1.0 Routine EEG is abnormal. The excessive beta activity is likely due to medication effect (Ativan). Otherwise, the background is normal and there is no focal slowing, epileptiform discharges or seizure on the EEG. - Labs CBC & Chem 7: 05/02/23 05:18 05/02/23 05:18 Labs: Abnormal Lab Results - Last 24 Hours (Table) 05/02/23 05/02/23 Range/Units 05:18 05:18 RBC 3.80 L (4.10-5.20) X 10*6/uL Hgb 10.5 L (12.0-15.0) g/dL Hct 32.9 L (37.2-46.3) % MCHC 31.9 L (32.0-37.0) g/dL Neutrophils # 1.45 L (1.80-7.70) X 10*3/uL Total Bilirubin <0.2 L (0.3-1.2) mg/dL Alkaline Phosphatase 39 L (41-126) U/L Total Protein 5.8 L (6.2-8.2) g/dL Assessment and Plan Assessment: This is a 37-year-old woman who presents from rehab facility because of a witnessed seizure-like activity lasting for 90 seconds. She states she has significant alcohol use and has been in rehab for 8 days and is seems that lately she was discontinued on her Ativan. Also she was placed on Wellbutrin in the last month to month. She had the prior seizure-like activity a month ago an d that she was a cutting down on alcohol. Seizure likely provoked due to cessation of Ativan as well as Wellbutrin decreases the threshold for seizures. EEG is negative for seizure or discharges. Prior history of seizure like activity about a month ago and the likely alcohol withdrawal since the patient was cutting down all call that she recalls Significant alcohol use and is in rehab History of opiate use and has been sober for 2 years Plan: Pending MRI the brain with and without I'll not start the patient on antiepileptic drugs since likely her seizures are provoked. If patient continues to have seizures then recommend placing the patient on Keppra 500 mg 1 tablet twice a day. Seizure precautions seizure pads She is on thiamine 100 mg daily as well as on the folic acid 1 mg daily. Please avoid Wellbutrin since it can lower the seizure threshold. Patient was counseled on alcohol cessation and the continue avoiding opiates Per [facility] because of seizure, avoid driving for 6 month until seizure- free, avoid heights, avoids swimming unassisted or using heavy machinery. Recommend the patient to follow-up with a neurologist as an outpatient within 1-2 weeks. The patient continues to have seizures I would recommend a sleep deprived EEG or prolonged EEG and can be considered as outpatient. We'll defer the rest of the medical management to the primary team If MRI Brain is negative and no further seizures, she is clear for discharge from neurological perspective. Plan discussed with the patient and primary attending. Time with Patient: Less than 30
--- NOTE | 2023-05-02 13:57 | CT ---
EXAMINATION TYPE: CT brain wo con DATE OF EXAM: 05/02/2023 COMPARISON: None HISTORY: New onset of seizures, pt has no prior hx of seizures CT DLP: 1142 mGycm. Automated Exposure Control for Dose Reduction was Utilized. TECHNIQUE: CT scan of the head is performed without contrast. FINDINGS: There is no acute intracranial hemorrhage, mass effect, or midline shift identified. The ventricles and sulci are within normal limits in size. The globes are intact and the visualized sin uses are clear. IMPRESSION: No acute intracranial hemorrhage, mass effect, or midline shift is seen.
--- NOTE | 2023-05-02 14:29 | P.DS ---
Providers Date of admission: 05/01/23 01:30 Expected date of discharge: 05/02/23 Attending physician: Denis Buenrostro MD Consults: 05/01/23 04:27 Consult Physician Urgent Consulting Provider: Jose D Yap Consult Reason/Comments: seizure Do you want consulting provider notified?: Yes Primary care physician: Carol Rivas DO Hospital Course: Discharge Diagnosis: Seizure likely secondary to benzodiazepine withdrawal and Wellbutrin use Alcohol dependence Major depression disorder Generalized anxiety disorder Chronic opioid dependence Hospital Course: 37-year-old female with a PMH of alcohol abuse who was sent in from [place] after a witnessed grand mal seizure. In the emergency room, EKG reveals sinus rhythm at [address]/T-wave changes as reviewed by me. Laboratory evaluation was remarkable for platelet count of 146. Neurology consulted. EEG did not show any focal slowing, epileptiform discharge or seizure. MRI brain attempted, the patient is extremely claustrophobic. Head CT showed no acute intracranial hemorrhage, mass effect or midline shift. Wellbutrin discontinued at the time of discharge. She will follow-up with PCP and psychiatry. Patient seen and examined at bedside. Vital signs reviewed and stable. General: nontoxic, no distress, appears at stated age Derm: warm, dry Head: atraumatic, normocephalic, symmetric Eyes: EOMI, no lid lag, anicteric sclera Mouth: no lip lesion, mucus membranes moist Cardiovascular: S1S2 reg, no murmur Lungs: CTA bilateral, no rhonchi, no rales , no accessory muscle use Abdominal: soft, nontender to palpation, no guarding, no appreciable organomegaly Ext: no gross muscle atrophy, no edema, no contractures Neuro: CN II-XI grossly intact, no focal neuro deficits Psych: Alert, oriented, appropriate affect A total of 33 minutes of time were spent preparing this complex discharge summary. Patient was discharged on 05/02/23 at 14:23. Patient Condition at Discharge: Stable Plan - Discharge Summary New Discharge Prescriptions: New Folic Acid 1 mg PO DAILY #30 tab Thiamine [Vitamin B-1] 100 mg PO DAILY #30 tab Multivitamins, Thera [Multivitamin (formulary)] 1 each PO DAILY #30 tab Continue Acetaminophen Tab [Tylenol] 650 mg PO Q4H PRN PRN Reason: Pain cloNIDine HCL [Catapres] 0.1 - 0.3 mg PO Q4H PRN PRN Reason: BP >160/100 Buprenorphine HCl/Naloxone HCl [Suboxone 8 mg-2 mg Sl Film] 1 film SL BID Benzocaine 20 % Gel [Orajel] 1 applic TOPICAL DIRECTED PRN PRN Reason: oral pain busPIRone HCl [Buspar] 10 mg PO TID Chlorpheniramine Maleate [Chlor-Trimeton] 4 mg PO Q4H PRN PRN Reason: Allergy Symptoms Ibuprofen [Motrin Ib] 600 mg PO Q6HR PRN PRN Reason: Pain lidocaine HCL [lidocaine HCL Viscous] 1 dose MUCOUS MEM DIRECTED PRN PRN Reason: oral pain relief Mirtazapine [Remeron] 15 mg PO HS Discontinued buPROPion HCL [Wellbutrin XL] 150 mg PO BID clindamycin HCL 300 mg PO TID@0630,1230,1630 Discharge Medication List Buprenorphine HCl/Naloxone HCl [Suboxone 8 mg-2 mg Sl Film] 1 film SL BID 04/23/23 [History] Acetaminophen Tab [Tylenol] 650 mg PO Q4H PRN 05/01/23 [History] Benzocaine 20 % Gel [Orajel] 1 applic TOPICAL DIRECTED PRN 05/01/23 [History] Chlorpheniramine Maleate [Chlor-Trimeton] 4 mg PO Q4H PRN 05/01/23 [History] Ibuprofen [Motrin Ib] 600 mg PO Q6HR PRN 05/01/23 [History] Mirtazapine [Remeron] 15 mg PO HS 05/01/23 [History] busPIRone HCl [Buspar] 10 mg PO TID 05/01/23 [History] cloNIDine HCL [Catapres] 0.1 - 0.3 mg PO Q4H PRN 05/01/23 [History] lidocaine HCL [lidocaine HCL Viscous] 1 dose MUCOUS MEM DIRECTED PRN 05/01/23 [History] Folic Acid 1 mg PO DAILY #30 tab 05/02/23 [Rx] Multivitamins, Thera [Multivitamin (formulary)] 1 each PO DAILY #30 tab 05/02/23 [Rx] Thiamine [Vitamin B-1] 100 mg PO DAILY #30 tab 05/02/23 [Rx] Follow up Appointment(s)/Referral(s): Nonstaff,Physician [REFERRING] - 1-2 days Patient Instructions/Handouts: Seizure/Epilepsy Discharge Instructions & Follow-Up Activity/Diet/Wound Care/Special Instructions: Please see your PCP and a psychiatrist. Discharge/Stand Alone Forms: AA Meetings [facility] [facility], Who Do I Call?, Community Resources, Outpatient Counseling, Inp Substance Abuse Facilities Discharge Disposition: OTHER INSTITUTION NOT DEFINED
[2023-05-02 14:39] VITALS: BP 144/86; PULSE 85; TEMP 98.8
== END 2023-05-02 15:56 | disposition home or self-care (01) ==
LOC: EC 21:43 → 5NMEDONC 05-01 01:30
PROVIDERS: ADMIT Internal Medicine; ATTEND Internal Medicine
DX: R56.9 Unspecified convulsions (principal); F10.239 Alcohol dependence with withdrawal, unspecified; F11.20 Opioid dependence, uncomplicated; R94.01 Abnormal electroencephalogram [EEG]; F41.1 Generalized anxiety disorder; F32.9 Major depressive disorder, single episode, unspecified; F40.240 Claustrophobia; Y90.0 Blood alcohol level of less than 20 mg/100 ml; F17.200 Nicotine dependence, unspecified, uncomplicated; Z79.899 Other long term (current) drug therapy; Z98.891 History of uterine scar from previous surgery; Z71.41 Alcohol abuse counseling and surveillance of alcoholic
CPT/HCPCS: 96376 ×2; 96361 ×3; 96372 ×2; 82075; 96374; 99285; 95816; 93005; 80053 ×2; 83690; 83735 ×2; 84100; 85025 ×2; 81003; 80306; 80143; 80179; 70450; G0378 ×2; G0480; J2060 ×2; J1650 ×2; 80320

== ENCOUNTER 2023-07-07 03:00 | Emergency (ER) | payer OTHER ==
[2023-07-07 03:51] VITALS: BP 126/88; PULSE 89; RESP 18; TEMP 98
[2023-07-07 04:03] LABS: Anisocytosis Slight; Basophils % (A) 1 %; Eosinophils # (A) 0.2 k/uL (0-0.7); Eosinophils % (A) 5 %; HCT 34.3 % (34.0-46.0); HGB 11.2 gm/dL (11.4-16.0); Lymphocytes # (A) 1.9 k/uL (1.0-4.8); Lymphocytes % (A) 51 %; MCH 26.1 pg (25.0-35.0); MCHC 32.7 g/dL (31.0-37.0); MCV 79.7 fL (80.0-100.0); Mean Platelet Volume 12.3; Monocytes # (A) 0.2 k/uL (0-1.0); Monocytes % (A) 6 %; Neutrophils # (A) 1.3 k/uL (1.3-7.7); Neutrophils % (A) 35 %; RBC 4.31 m/uL (3.80-5.40); RDW 16.2 % (11.5-15.5); WBC 3.8 k/uL (3.8-10.6)
[2023-07-07 04:15] LABS: ALT 26 U/L (4-34); AST 68 U/L (14-36); African American GFR (CKD) >90 (>60 ml/min/1.73 sqM); Albumin 3.9 g/dL (3.5-5.0); Alkaline Phosphatase 38 U/L (38-126); Anion Gap 2 mmol/L; Blood Urea Nitrogen 11 mg/dL (7-17); Calcium 8.4 mg/dL (8.4-10.2); Carbon Dioxide 27 mmol/L (22-30); Chloride 106 mmol/L (98-107); Glucose 96 mg/dL (74-99); Non-African American GFR(CKD) >90 (>60 ml/min/1.73 sqM); Sodium 135 mmol/L (137-145); Total Protein 6.7 g/dL (6.3-8.2)
[2023-07-07 04:24] LABS: Potassium 5.2 mmol/L (3.5-5.1)
[2023-07-07 04:37] LABS: Platelet Count 97 k/uL (150-450)
[2023-07-07 04:53] LABS: Appearance,Urine Clear (Clear); Bilirubin,Urine Negative (Negative); Blood,Urine Negative (Negative); Color,Urine Colorless; Glucose,Urine (UA) Negative (Negative); Ketones,Urine Negative (Negative); Leukocyte Esterase,Urine Negative (Negative); Nitrite,Urine Negative (Negative); Protein,Urine Negative (Negative); Specific Gravity,Urine 1.005 (1.001-1.035); Urobilinogen,Urine <2.0 mg/dL (<2.0)
[2023-07-07 05:03] LABS: Amphetamine Screen,Urine Not Detected (NotDetected); Barbiturate Screen,Urine Not Detected (NotDetected); Benzodiazepines Screen,Urine Detected (NotDetected); Cocaine Screen,Urine Not Detected (NotDetected); Methadone Screen, Urine Not Detected (NotDetected); Opiate Screen,Urine Not Detected (NotDetected); Oxycodone Screen, Urine Not Detected (NotDetected); Phencyclidine Screen,Urine Not Detected (NotDetected); Tricyclic Antidepressant,Urine Not Detected (NotDetected); Urn Cannabinoid Scrn Not Detected (NotDetected)
--- NOTE | 2023-07-07 05:20 | ED ---
Psych HPI <Earl Rockwell Kassy - Last Filed: 07/07/23 10:01> - General Source: patient Mode of arrival: ambulatory Limitations: no limitations - History of Present Illness MD Complaint: other -: days(s) Associated Psychiatric Symptoms: other Quality: constant Improves With: none Worsens With: none Context: recent alcohol abuse <Ernesto Herrera - Last Filed: 07/15/23 06:49> - General Chief Complaint: Psychiatric Symptoms Stated Complaint: Alcohol Withdrawal Time Seen by Provider: 07/07/23 05:16 - History of Present Illness Initial Comments: This patient is a 37-year-old woman sent from [facility] to have evaluation for anxiety about being weaned from her Ativan too rapidly. Patient had reportedly gone to [facility] to stop drinking alcohol. She was placed on Ativan and Librium and believes that they are tapering this too quickly. She is feeling anxious. (Ernesto Herrera) - Related Data Home Medications Medication Instructions Recorded Confirmed Buprenorphine HCl/Naloxone HCl 1 film SL BID 04/23/23 05/01/23 [Suboxone 8 mg-2 mg Sl Film] Acetaminophen Tab [Tylenol] 650 mg PO Q4H PRN 05/01/23 05/01/23 Benzocaine 20 % Gel [Orajel] 1 applic TOPICAL DIRECTED PRN 05/01/23 05/01/23 Chlorpheniramine Maleate 4 mg PO Q4H PRN 05/01/23 05/01/23 [Chlor-Trimeton] Ibuprofen [Motrin Ib] 600 mg PO Q6HR PRN 05/01/23 05/01/23 Mirtazapine [Remeron] 15 mg PO HS 05/01/23 05/01/23 busPIRone HCl [Buspar] 10 mg PO TID 05/01/23 05/01/23 cloNIDine HCL [Catapres] 0.1 - 0.3 mg PO Q4H PRN 05/01/23 05/01/23 lidocaine HCL [lidocaine HCL 1 dose MUCOUS MEM DIRECTED PRN 05/01/23 05/01/23 Viscous] Previous Rx's Medication Instructions Recorded Folic Acid 1 mg PO DAILY #30 tab 05/02/23 Multivitamins, Thera [Multivitamin 1 each PO DAILY #30 tab 05/02/23 (formulary)] Thiamine [Vitamin B-1] 100 mg PO DAILY #30 tab 05/02/23 Allergies Allergy/AdvReac Type Severity Reaction Status Date / Time No Known Allergies Allergy Verified 07/07/23 03:34 Review of Systems ROS Other: All systems not noted in ROS Statement are negative. <Earl Rockwell - Last Filed: 07/07/23 10:01> ROS Other: All systems not noted in ROS Statement are negative. Constitutional: Denies: fever, chills Respiratory: Denies: cough, dyspnea Cardiovascular: Denies: chest pain, palpitations Gastrointestinal: Denies: abdominal pain, nausea, vomiting Genitourinary: Denies: dysuria Musculoskeletal: Denies: back pain Skin: Denies: rash Neurological: Denies: headache, weakness Psychiatric: Reports: anxiety <SharonErnesto - Last Filed: 07/15/23 06:49> ROS Statement: Those systems with pertinent positive or pertinent negative responses have been documented in the HPI. Past Medical History Past Medical History: No Reported History History of Any Multi-Drug Resistant Organisms: None Reported Past Surgical History: No Surgical Hx Reported Past Psychological History: Anxiety Smoking Status: Current every day smoker Past Alcohol Use History: Abuse, Daily, Heavy Past Drug Use History: Marijuana <SharonErnesto - Last Filed: 07/15/23 06:49> General Exam Limitations: no limitations General appearance: alert, in no apparent distress Head exam: Present: atraumatic, normocephalic Eye exam: Present: normal appearance. Absent: scleral icterus, conjunctival injection Neck exam: Present: normal inspection Respiratory exam: Present: normal lung sounds bilaterally. Absent: respiratory distress, wheezes, rales, rhonchi, stridor Cardiovascular Exam: Present: regular rate, normal rhythm, normal heart sounds. Absent: systolic murmur, diastolic murmur, rubs, gallop GI/Abdominal exam: Present: soft. Absent: distended, tenderness, guarding, rebound, rigid, mass Extremities exam: Present: normal inspection, normal capillary refill. Absent: pedal edema, calf tenderness Back exam: Present: normal inspection. Absent: CVA tenderness (R), CVA ten derness (L) Neurological exam: Present: alert Psychiatric exam: Present: anxious Skin exam: Present: warm, dry, intact, normal color. Absent: rash <Ernesto Herrera - Last Filed: 07/15/23 06:49> Course Vital Signs 07/07/23 03:31 Temperature 98 F Pulse Rate 89 Respiratory 18 Rate Blood Pressure 126/88 O2 Sat by Pulse 99 Oximetry Medical Decision Making - Lab Data Result diagrams: 07/07/23 03:43 07/07/23 03:43 <LanceveronicaEarl Kassy - Last Filed: 07/07/23 10:01> - Lab Data Result diagrams: 07/07/23 03:43 07/07/23 03:43 <SharonErnesto - Last Filed: 07/15/23 06:49> - Medical Decision Making Was pt. sent in by a medical professional or institution (, PA, INSPECTOR CRYSTAL, urgent care, hospital, or retirement...) When possible be specific @ -Yes sent from rehabilitation center to have further evaluation Did you speak to anyone other than the patient for history (EMS, parent, family, police, friend...)? What history was obtained from this source @ -[No] Did you review nursing and triage notes (agree or disagree)? Why? @ -[I reviewed and agree with nursing and triage notes] Were old charts reviewed (outside hosp., previous admission, EMS record, old EKG, old radiological studies, urgent care reports/EKG's, retirement records)? Report findings @ -[No old charts were reviewed] Differential Diagnosis (chest pain, altered mental status, abdominal pain women, abdominal pain men, vaginal bleeding, weakness, fever, dyspnea, syncope, headache, dizziness, GI bleed, back pain, seizure, CVA, palpatations, mental health, musculoskeletal)? @ -[Differential Mental Health Depression, anxiety, bipolar, psychosis, schizophrenia, borderline personality, situational depression, adjustment disorder, behavioral disorder, brain tumor, malingering, substance abuse, encephalopathy, medication reaction, dementia, hypothyroidism, degenerative neurologic disorder, lupus.... This is not meant to be all-inclusive list EKG interpreted by me (3pts min.). @ -[As above] X-rays interpreted by me (1pt min.). @ -[None done] CT interpreted by me (1pt min.). @ -[None done] U/S interpreted by me (1pt. min.). @ -[None done] What testing was considered but not performed or refused? (CT, X-rays, U/S, labs)? Why? @ -[None] What meds were considered but not given or refused? Why? @ -[None] Did you discuss the management of the patient with other professionals (professionals i.e. , PA, INSPECTOR [employer]YSTAL, lab, RT, psych nurse, medical social worker, candy forming machine operator, teacher, chief technology officer, child welfare caseworker)? Give summary @ -[No] Was smoking cessation discussed for >3mins.? @ -[No] Was critical care preformed (if so, how long)? @ -[No] Were there social determinants of health that impacted care today? How? (Homelessness, low income, unemployed, alcoholism, drug addiction, transportation, low edu. Level, literacy, decrease access to med. care, mcc, rehab)? @ -[No] Was there de-escalation of care discussed even if they declined (Discuss DNR or withdrawal of care, Hospice)? DNR status @ -[No] What co-morbidities impacted this encounter? (DM, HTN, Smoking, COPD, CAD, Cancer, CVA, ARF, Chemo, Hep., AIDS, mental health diagnosis, sleep apnea, morbid obesity)? @ -[None] Was patient admitted / discharged? Hospital course, mention meds given and route, prescriptions, significant lab abnormalities, going to OR and other pertinent info. @ -[Patient is a 37-year-old woman here to have further evaluation for having some suicidal ideation and concerns about her medications for alcohol withdrawal. The patient is pending EPS evaluation at the time of shift change. (Ernesto Herrera) - Lab Data Lab Results 07/07/23 07/07/23 07/07/23 Range/Units 03:43 03:43 03:43 WBC 3.8 (3.8-10.6) k/uL RBC 4.31 (3.80-5.40) m/uL Hgb 11.2 L (11.4-16.0) gm/dL Hct 34.3 (34.0-46.0) % MCV 79.7 L (80.0-100.0) fL MCH 26.1 (25.0-35.0) pg MCHC 32.7 (31.0-37.0) g/dL RDW 16.2 H (11.5-15.5) % Plt Count 97 L (150-450) k/uL MPV 12.3 Neutrophils % 35 % Lymphocytes % 51 % Monocytes % 6 % Eosinophils % 5 % Basophils % 1 % Neutrophils # 1.3 (1.3-7.7) k/uL Lymphocytes # 1.9 (1.0-4.8) k/uL Monocytes # 0.2 (0-1.0) k/uL Eosinophils # 0.2 (0-0.7) k/uL Basophils # 0.0 (0-0.2) k/uL Anisocytosis Slight Sodium (137-145) mmol/L Potassium (3.5-5.1) mmol/L Chloride (98-107) mmol/L Carbon Dioxide (22-30) mmol/L Anion Gap mmol/L BUN (7-17) mg/dL Creatinine (0.52-1.04) mg/dL Est GFR (CKD-EPI)AfAm (>60 ml/min/1.73 sqM) Est GFR (CKD-EPI)NonAf (>60 ml/min/1.73 sqM) Glucose (74-99) mg/dL Calcium (8.4-10.2) mg/dL Total Bilirubin (0.2-1.3) mg/dL AST (14-36) U/L ALT (4-34) U/L Alkaline Phosphatase (38-126) U/L Total Protein (6.3-8.2) g/dL Albumin (3.5-5.0) g/dL Urine Color Urine Appearance (Clear) Urine pH (5.0-8.0) Ur Specific [place] (1.001-1.035) Urine Protein (Negative) Urine Glucose (UA) (Negative) Urine Ketones (Negative) Urine Blood (Negative) Urine Nitrite (Negative) Urine Bilirubin (Negative) Urine Urobilinogen (<2.0) mg/dL Ur Leukocyte Esterase (Negative) Urine HCG, Qual Not Detected (Not Detectd) Urine Opiates Screen Not Detected (NotDetected) Ur Oxycodone Screen Not Detected (NotDetected) Urine Methadone Screen Not Detected (NotDetected) Ur Barbiturates Screen Not Detected (NotDetected) U Tricyclic Antidepress Not Detected (NotDetected) Ur Phencyclidine Scrn Not Detected (NotDetected) Ur Amphetamines Screen Not Detected (NotDetected) U Methamphetamines Scrn Not Detected (NotDetected) U Benzodiazepines Scrn Detected H (NotDetected) Urine Cocaine Screen Not Detected (NotDetected) U Marijuana (THC) Screen Not Detected (NotDetected) 07/07/23 07/07/23 Range/Units 03:43 03:43 WBC (3.8-10.6) k/uL RBC (3.80-5.40) m/uL Hgb (11.4-16.0) gm/dL Hct (34.0-46.0) % MCV (80.0-100.0) fL MCH (25.0-35.0) pg MCHC (31.0-37.0) g/dL RDW (11.5-15.5) % Plt Count (150-450) k/uL MPV Neutrophils % % Lymphocytes % % Monocytes % % Eosinophils % % Basophils % % Neutrophils # (1.3-7.7) k/uL Lymphocytes # (1.0-4.8) k/uL Monocytes # (0-1.0) k/uL Eosinophils # (0-0.7) k/uL Basophils # (0-0.2) k/uL Anisocytosis Sodium 135 L (137-145) mmol/L Potassium 5.2 H (3.5-5.1) mmol/L Chloride 106 (98-107) mmol/L Carbon Dioxide 27 (22-30) mmol/L Anion Gap 2 mmol/L BUN 11 (7-17) mg/dL Creatinine 0.76 (0.52-1.04) mg/dL Est GFR (CKD-EPI)AfAm >90 (>60 ml/min/1.73 sqM) Est GFR (CKD-EPI)NonAf >90 (>60 ml/min/1.73 sqM) Glucose 96 (74-99) mg/dL Calcium 8.4 (8.4-10.2) mg/dL Total Bilirubin 1.0 (0.2-1.3) mg/dL AST 68 H (14-36) U/L ALT 26 (4-34) U/L Alkaline Phosphatase 38 (38-126) U/L Total Protein 6.7 (6.3-8.2) g/dL Albumin 3.9 (3.5-5.0) g/dL Urine Color Colorless Urine Appearance Clear (Clear) Urine pH 7.0 (5.0-8.0) Ur Specific [place] 1.005 (1.001-1.035) Urine Protein Negative (Negative) Urine Glucose (UA) Negative (Negative) Urine Ketones Negative (Negative) Urine Blood Negative (Negative) Urine Nitrite Negative (Negative) Urine Bilirubin Negative (Negative) Urine Urobilinogen <2.0 (<2.0) mg/dL Ur Leukocyte Esterase Negative (Negative) Urine HCG, Qual (Not Detectd) Urine Opiates Screen (NotDetected) Ur Oxycodone Screen (NotDetected) Urine Methadone Screen (NotDetected) Ur Barbiturates Screen (NotDetected) U Tricyclic Antidepress (NotDetected) Ur Phencyclidine Scrn (NotDetected) Ur Amphetamines Screen (NotDetected) U Methamphetamines Scrn (NotDetected) U Benzodiazepines Scrn (NotDetected) Urine Cocaine Screen (NotDetected) U Marijuana (THC) Screen (NotDetected) Disposition Is patient prescribed a controlled substance at d/c from ED?: No <Earl Rockwell - Last Filed: 07/07/23 10:01> <Ernesto Herrera - Last Filed: 07/15/23 06:49> Clinical Impression: Acute anxiety Disposition: HOME SELF-CARE Condition: Fair Instructions (If sedation given, give patient instructions): Anxiety (ED) Referrals: Carol Rivas DO [Primary Care Provider] - 1-2 days
[2023-07-07] MEDS: chlordiazePOXIDE 25 MG CAP PO STA (06:35)
[2023-07-07] MEDS: LORazepam 1 MG TAB PO STA (10:16)
== END 2023-07-07 10:48 | disposition home or self-care (01) ==
LOC: EC 03:00
DX: F41.9 Anxiety disorder, unspecified (principal); F17.200 Nicotine dependence, unspecified, uncomplicated; F12.90 Cannabis use, unspecified, uncomplicated; Z79.899 Other long term (current) drug therapy
CPT/HCPCS: 36415; 80053; 80306; 81003; 81025; 85025; 99285